=== PATIENT | male | born 2000 | race Caucasian/White ===

== ENCOUNTER 2019-07-31 18:11 | Emergency (ER) | payer OTHER ==
[2019-07-31] MEDS ORDERED: NS 0.9% 1000 ML** 1,000 ML IV ONE (19:04)
[2019-07-31 19:28] LABS: ABS Eosinophils 0.2 10^3/ul (0-0.6); ABS Lymphocytes 1.2 10^3/ul (1.0-4.8); ABS Monocytes 0.8 10^3/ul (0-0.8); ABS Neutrophils 6.9 10^3/ul (1.5-7.7); Eosinophil % 1.9 %; Hematocrit 49 % (42-52); Hemoglobin 16.9 g/dL (14.0-18.0); Lymphocyte % 13.2 %; Mean Corpuscular HGB Conc 35 g/dL (31-36); Mean Corpuscular Hemoglobin 32 pg (27-31); Mean Corpuscular Volume 92 fL (80-94); Mean Platelet Volume 7.7 fL (7.4-10.4); Nucleated Red Blood Cells % 0.2; Platelet Count 306 10^3/uL (150-450); Red Blood Count 5.29 10^6 /uL (4.18-5.48); Red Cell Distribution Width 13 % (10-15); White Blood Count 9.1 10^3/uL (3.5-10.8)
--- NOTE | 2019-07-31 19:30 | ED ---
Complex/Multi-Sys Presentation - HPI Summary HPI Summary: Patient is a 18 y/o M presenting to [facility] with complaints of jaundice and sore throat. He also claims that he has been awake for the past 79 hours studying for finals. Patient reports using caffeine and his ADHD medication to stay awake. He notes that he was diagnosed with strep throat a few weeks ago around [facility]. Patient was prescribed a medication that he does not recall the name of to treat his strep throat. He states that he had return of sore throat three days ago. Sore throat is currently less severe compared to onset. Patient also believes that he appears jaundiced. He notes FMHx of Gilbert syndrome but denies past personal episodes of jaundice. 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 Home medications and allergies are reviewed. - History Of Current Complaint Chief Complaint: EDGeneral Time Seen by Provider: 07/31/19 18:48 Hx Obtained From: Patient Onset/Duration: Lasting Days, Still Present Timing: Constant, Days Location: Pain At: - throat Aggravating Factor(s): nothing Alleviating Factor(s): nothing Associated Signs And Symptoms: Positive: Other - positive - sore throat, jaundice, sleep deprivation - Allergies/Home Medications Allergies/Adverse Reactions: Allergies Allergy/AdvReac Type Severity Reaction Status Date / Time Sulfa (Sulfonamide Allergy Rash And Verified 07/31/19 18:17 Antibiotics) Itching Home Medications: Home Medications Amphetamine MIXED SALT TAB* [Adderall TAB*] 20 mg PO BID 07/31/19 [History Confirmed 07/31/19] DOXYcycline CAP(*) [DOXYcycline 100MG CAP(*)] 100 mg PO DAILY 07/31/19 [History Confirmed 07/31/19] Ibuprofen TAB* [Advil TAB*] 400 mg PO Q6H PRN 07/31/19 [History Confirmed ] PMH/Surg Hx/FS Hx/Imm Hx Sensory History: Denies: Hx Legally Blind, Hx Deafness Opthamlomology History: Denies: Hx Legally Blind EENT History: Denies: Hx Deafness Infectious Disease History: No Infectious Disease History: Denies: Traveled Outside the [place] in Last 30 Days - Family History Known Family History: Positive: Other - Gilbert syndrome - Social History Alcohol Use: Rare Substance Use Type: Reports: None Smoking Status (MU): Never Smoked Tobacco Review of Systems Constitutional: Other - positive - sleep deprivation Positive: Sore Throat Skin: Other - positive - jaundice All Other Systems Reviewed And Are Negative: Yes Physical Exam - Summary Physical Exam Summary: Appearance: The patient is well-nourished in no acute distress and in no acute pain. Skin: The skin is warm and dry, and skin color reflects adequate perfusion. HEENT: The head is normocephalic and atraumatic. The pupils are equal and reactive. The conjunctivae are without drainage. The sclera are somewhat icteric Nares are patent and without drainage. Mouth reveals moist mucous membranes, and the throat is with erythema but not exudate. The external ears are intact. The ear canals are patent and without drainage. The tympanic membranes are intact. Neck: The neck is supple with full range of motion and non-tender. There are no carotid bruits. There is no neck vein distension. Respiratory: Chest is non-tender. Lungs are clear to auscultation and breath sounds are symmetrical and equal. Cardiovascular: Heart is regular rate and rhythm. There is no murmur or rub auscultated. There is no peripheral edema and pulses are symmetrical and equal. Abdomen: The abdomen is soft and non-tender. There are normal bowel sounds heard in all four quadrants and there is no organomegaly palpated. Musculoskeletal: There is no back tenderness noted. Extremities are non-tender with full range of motion. There is good capillary refill. There is no peripheral edema or calf tenderness elicited. Neurological: Patient is alert and oriented to person, place and time. The patient has symmetrical motor strength in all four extremities. Cranial nerves are grossly intact. Deep tendon reflexes are symmetrical and equal in all four extremities. Psychiatric: The patient has an appropriate affect and does not exhibit any anxiety or depression. Triage Information Reviewed: Yes Vital Signs On Initial Exam: Initial Vitals Temp Pulse Resp BP Pulse Ox 98.0 F 98 18 156/104 100 07/31/19 18:13 07/31/19 18:13 07/31/19 18:13 07/31/19 18:13 07/31/19 18:13 Vital Signs Reviewed: Yes Procedures - Sedation Patient Received Moderate/Deep Sedation with Procedure: No Diagnostics - Vital Signs Vital Signs Temp Pulse Resp BP Pulse Ox 07/31/19 18:13 98.0 F 98 18 156/104 100 - Laboratory Result Diagrams: 07/31/19 19:18 07/31/19 19:18 Lab Statement: Any lab studies that have been ordered have been reviewed, and results considered in the medical decision making process. Re-Evaluation - Re-Evaluation First Eval Re-Evaluation Time: 20:16 Comment: Results of workup were discussed, patient discharged to home and will follow up with PCP in three days. Complex Multi-Symp Course/Dx Course Of Treatment: Mr. Lara garcia stayed up for about 80 hours preparing for end of the semester tasks. He thinks he looks jaundiced today and has a sore throat. His sister has been diagnosed with Gilbert's syndrome. He was treated for strep a couple weeks ago. He was nontoxic in appearance is stable vitals. His posterior pharynx was erythematous and I thought his sclera might be slightly icteric. Rapid strep test was negative. He was hydrated with IV normal saline as he is likely dehydrated from the last 8 hours where he has been using sympathomimetics. His bilirubin was 1.9 and normal in this lab is up to 1. I'm not sure of the significance of this but I recommended he follow- up with his PCP and get some sleep. - Diagnoses Provider Diagnoses: Pharyngitis, Dehydration Discharge ED - Sign-Out/Discharge Documenting (check all that apply): Patient Departure - discharge - Discharge Plan Condition: Stable Disposition: HOME Patient Education Materials: Dehydration (ED), Pharyngitis (ED) Referrals: [facility] - Jarred FONSECA [Primary Care Provider] - 3 Days Additional Instructions: PLEASE RETURN TO ED FOR ANY NEW OR CONCERNING SYMPTOMS. PLEASE FOLLOW UP WITH YOUR PRIMARY CARE PHYSICIAN WITHIN THREE DAYS. - Billing Disposition and Condition Condition: STABLE Disposition: Home - Attestation Statements Document Initiated by Mela: Yes Documenting Scribe: ANIBAL BAÑUELOS Provider For Whom Mela is Documenting (Include Credential): WEI GIBBS MD Scribe Attestation: IANIBAL, scribed for WEI GIBBS MD on 07/31/19 at 2026. Scribe Documentation Reviewed: Yes Provider Attestation: The documentation as recorded by the ANIBAL laboy accurately reflects the service I personally performed and the decisions made by me, WEI GIBBS MD Status of Scribe Document: Viewed
[2019-07-31 19:33] LABS: Rapid Strep Molecular Negative (Negative)
[2019-07-31 19:44] LABS: Albumin 4.9 g/dL (3.2-5.2); Albumin/Globulin Ratio 1.6 (1-3); BUN/Creatinine Ratio 6.2 (8-20); Calcium 10.6 mg/dL (8.6-10.3); EGFR African American 119.4 (>60); EGFR Non-African American 98.7 (>60); Potassium 3.6 mmol/L (3.5-5.0); Total Bilirubin 1.9 mg/dL (0.2-1.0); Total Protein 7.9 g/dL (6.4-8.9)
[2019-07-31 20:46] VITALS: BP 149/99
== END 2019-07-31 20:32 | disposition home or self-care (01) ==
LOC: ED 18:11
DX: J02.9 Acute pharyngitis, unspecified (principal); Z88.2 Allergy status to sulfonamides; E86.0 Dehydration
CPT/HCPCS: 36415; 80053; 85025; 87651; 96360; 99282